=== PATIENT | male | born 1935 | race Caucasian/White ===

== ENCOUNTER → 2024-10-30 | Outpatient (CLI) | payer MEDICARE ==
[~2024-10-30] MED LIST: CARB1TAB35 PO; CETI10TA57 PO; GABA-534 PO; PRED20TA3 PO; ROPI2TAB53 PO; SIMV10TA97 PO; TAMS-1 PO
--- NOTE | 2024-11-03 18:44 | HMCSR ---
APPROVED REPORT EXAM: Two-dimensional and M-mode echocardiogram with Doppler and color Doppler. INDICATION ICD: Aortic valve disorders I35.0 2D Dimensions RVDd4.4 cmLVEF(%)41.1 (>50%)LVED Vol(simp.)101.0 mL IVSd1.4 (0.7-1.1cm)FS(%)20 %LVES Vol(simp.)57.0 mL LVDd3.8 (3.8-5.6cm)Ao Root(2D)3.1 (2.0-3.7cm)LVEF(%, simp.)44 % PWd1.4 (0.7-1.1cm)LVOT diam2.0 (1.8-2.4cm)LA ESV INDEX (BP)55.38 mL/m2 LVDs3.1 (2.5-4.0cm)IVC diam2.3 cm Aortic Valve AoV Vmax3.9 m/Clyde Peak GR60.4 mmHgLVOT Vmax0.8 m/s AoV VTI1.0 mAo Mean GR36.8 mmHgLVOT VTI0.18 m SINGH (VMAX)0.6 cm2AVA (VTI) 0.6 cm2 Mitral Valve MV E Kbbr351.7 cm/sDECEL Gjze083 ms MV A Vmax54.1 cm/sP 1/2 T56 ms E/A ratio2.0MVA (PHT)4.0 cm2 MR Max PG91 mmHg TDI E/E' Zlqoje22.8E/E' Xtfnpuc63.3 Pulmonary Valve PV Vmax0.8 m/sPV VTI0.15 mPV Mean GR2 mmHg PV Peak GR2.5 mmHg Tricuspid Valve TR Vmax2.3 m/sRAP (EST) 8 thWoSITC98.6 mmHg TR Peak GR21.6 mmHg Left Ventricle Left ventricular cavity size is normal. There is moderate concentric left ventricular hypertrophy. LV EF is 40-45%. Grade 2 diastolic dysfunction. Right Ventricle The right ventricle is mildly to moderately dilated. The right ventricular systolic function is chaya l. Atria The left atrium is severely dilated. The right atrium is borderline dilated. Aortic Valve Aortic valve is trileaflet. The aortic valve is calcified and displays decreased opening. Trace aorti c regurgitation. AV Dimensionless Index is 0.19 Moderate to severe aortic stenosis Calculated aortic valve area is 0.6 cm2 with maximum pressure gradient of 60.4 mmHg and mean pressure gradient of 36.8 mmHg. PV 3.9 m/s. Mitral Valve Mitral annular calcification is mild. Mitral valve leaflets are sclerotic but open well. Mitral regur gitation is trace to mild. There is no mitral valve stenosis. Tricuspid Valve The tricuspid valve leaflets appear normal. There is trace to mild tricuspid regurgitation. Right alisson tricular systolic pressure is estimated at 30 mmHg. Pulmonic Valve The pulmonic valve leaflets appear normal. There is trace pulmonic valvular regurgitation. Great Vessels The aortic root is normal in size. IVC is dilated and collapses >50% with inspiration. Pericardium No pericardial effusion. Conclusion Left ventricular cavity size is normal. There is moderate concentric left ventricular hypertrophy. LVEF is 40-45%. Grade 2 diastolic dysfunction. The right ventricle is mildly to moderately dilated. The right ventricular systolic function is normal. The left atrium is severely dilated. The right atrium is borderline dilated. Aortic valve is trileaflet. The aortic valve is calcified and displays decreased opening. Moderate to severe aortic stenosis Calculated aortic valve area is 0.6 cm2 with maximum pressure grad ient of 60.4 mmHg and mean pressure gradient of 36.8 mmHg. PV 3.9 m/s. Mitral regurgitation is trace to mild. There is trace to mild tricuspid regurgitation. Right ventricular systolic pressure is estimated at 30 mmHg. No pericardial effusion.
== END | disposition home or self-care (01) ==
LOC: SHCH 10:35
PROVIDERS: ATTEND Student in an Organized Health Care Education/Training Program
DX: I08.3 Combined rheumatic disorders of mitral, aortic and tricuspid valves (principal); I35.0 Nonrheumatic aortic (valve) stenosis
CPT/HCPCS: 93306